=== PATIENT | female | born 1985 | race Two or more races ===

== ENCOUNTER 2024-01-09 16:00 | Emergency (ER) | payer BC, SELFPAY ==
[2024-01-09 16:23] VITALS: BP 135/90; PULSE 76; RESP 18; TEMP 36.9; O2SAT 99; BMI 43.0
--- NOTE | 2024-01-09 16:26 | XR_ITS ---
Examination: Abdomen sonogram, Limited Date and time of exam: January 08, 2024 1729 hrs. Indications: Right upper abdominal pain beginning 2 days ago Technique: Real-time li scale transabdominal sonographic images of the upper abdomen obtained. Findings: Gallbladder is contracted around a large gallstone Gallbladder wall borderline thickened 0.39 cm Common bile duct 0.3 cm Pancreatic head 3.6 cm Liver 13.5 cm fatty infiltration mildly lobular contour Normal hepatopedal portal venous flow Patent IVC Impression: Cholelithiasis Borderline thickening gallbladder wall, clinical correlation advised, consider HIDA scan or MRCP follow-up Mildly prominent pancreatic head, clinical correlation advised Suspect primary hepatocellular disease
--- NOTE | 2024-01-09 16:26 | PD.EDRME ---
Rapid Medical Screening Exam RME Arrival date/time: 01/09/24 16:00 38-year-old female presents the emergency department complaint of abdominal pain Chief Complaint: Abdominal Pain Time Seen by Provider: 01/09/24 16:16 Vital signs: Vital Signs Temperature 98.5 F 01/09/24 16:23 Pulse Rate 76 01/09/24 16:23 Respiratory Rate 18 01/09/24 16:23 Blood Pressure 135/90 H 01/09/24 16:23 Pulse Oximetry (%) 99 01/09/24 16:23 Oxygen Delivery Method Room Air 01/09/24 16:23
[2024-01-09 17:10] LABS: Basophils # (Auto) 0.1 Thou/mm3 (0.0-0.2); Basophils % (Auto) 1 % (0-2.5); Eosinophils # (Auto) 0.2 Thou/mm3 (0.0-0.5); Eosinophils % (Auto) 2 % (0-10); Hematocrit 40.9 % (36.0-46.0); Hemoglobin 13.6 g/dL (12.0-16.0); Immature Granulocytes % (Auto) 0 % (0-0); Immature Granulocytes Auto 0.02 Thou/mm3 (0.00-0.00); Lymphocytes # (Auto) 2.2 Thou/mm3 (1.0-4.8); Lymphocytes % (Auto) 25 % (10-50); Mean Corpuscular HGB Conc 33.3 g/dl (31.0-37.0); Mean Corpuscular Hemoglobin 28.8 pg (25.0-35.0); Mean Corpuscular Volume 87 fL (80-100); Monocytes # (Auto) 0.6 Thou/mm3 (0.0-0.8); Monocytes % (Auto) 7 % (0-12); Neutrophils # (Auto) 5.7 Thou/mm3 (1.8-7.7); Neutrophils % (Auto) 65 % (37-80); Nucleated Red Blood Cell % 0 /100 WBC (0); Platelet Count 290 Thou/mm3 (140-440); RDW Standard Deviation 41.7 fL (36.4-46.3); Red Blood Count 4.73 Miln/mm3 (4.00-5.20); White Blood Count 8.8 Thou/mm3 (3.6-11.0)
[2024-01-09 17:30] LABS: Alanine Aminotransferase 37 U/L (10-49); Albumin, Serum 4.3 gm/dL (3.5-5.0); Albumin/Globulin Ratio 1.4 (1.2-2.2); Alkaline Phosphatase 116 U/L (46-116); Anion Gap 8 (7-16); Aspartate Amino Transferase 31 U/L (0-34); BUN/Creatinine Ratio 10 Ratio (12-20); Bilirubin,Total 0.6 mg/dL (0.3-1.2); Blood Urea Nitrogen 8 mg/dL (9-23); Calcium 9.4 mg/dL (8.3-10.6); Calcium (Corrected) 9.4 mg/dL (8.5-10.1); Chloride 105 mMol/L (98-107); Creatinine (Component) 0.8 mg/dL (0.6-1.3); Estimated Creatinine Clearance 105.4 mL/min (>60); Glucose 81 mg/dL (74-106); Lipase 40 U/L (12-53); Osmolality,Calculated 274 (275-295); Potassium 3.6 mMol/L (3.4-5.1); Sodium 139 mMol/L (136-145); Total Protein 7.3 gm/dL (5.7-8.2); eGFR > 60 See Note
--- NOTE | 2024-01-09 18:17 | EDNOTE_ITS ---
ED Abdominal Pain RME/HPI General Chief Complaint: Abdominal Pain Stated complaint: POSSIBLE GALLSONES Time seen by provider: 01/09/24 16:16 Arrival date/time: 01/09/24 16:00 RME / HPI RME / HPI narrative: 38-year-old female patient with significant history of obesity, came in for evaluation regarding epigastric pain. Onset of symptoms since last night as worsening epigastric pain radiating to the back. Described as crampy, severity moderate. Denies any vomiting denies any fever denies any diarrhea or constipation denies any other complaints no medication was taken prior to arrival. Related Data Home Medications ?Medication ?Instructions ?Recorded ?Confirmed acetaminophen 325 mg capsule 325 mg PO QID PRN 04/08/23 05/22/23 (Tylenol) Previous Rx's ?Medication ?Instructions ?Recorded albuterol sulfate 90 mcg/actuation 2 inh inhalation Q6H PRN shortness 05/22/23 aerosol inhaler of breath or wheezing #6.7 grams ibuprofen 600 mg tablet 600 mg PO Q8H PRN fever or pain 05/22/23 #30 tabs nirmatrelvir 300 mg (150 mg See Rx Instructions PO .COMPLEX 05/22/23 x2)-ritonavir 100 mg tablet,dose #30 tabs pack (Paxlovid) dicyclomine 20 mg tablet 20 mg PO TID PRN abdominal pain 01/09/24 #30 tabs Allergies Allergy/AdvReac Type Severity Reaction Status Date / Time No Known Allergies Allergy Verified 01/09/24 16:02 Review of Systems Review of Systems Narrative Review of Systems: Review of system reviewed and within normal limits except mentioned in HPI ED Exam Narrative Physical exam: VITAL SIGNS: Reviewed. GENERAL APPEARANCE: Alert and interactive, follows commands, no acute distress, HEAD AND FACE: Non-traumatic. ENT: PERRL, pink conjunctivitis, eyelid no trauma, Mucous membrane moist. NECK: Supple, nontender, no nuchal rigidity. CHEST: No tenderness, no crepitus, no paradoxical movement, no retractions. LUNGS: Clear, well ventilated, symmetric, no rales, no wheezing, no ronchi, no stridor, good breath sounds bilaterally. HEART: Regular rate, regular rhythm, no murmur, no gallops. ABDOMEN: Soft, positive bowel sounds, nondistended, no guarding, epigastric tenderness, no rebound, no masses, RECTAL: Deferred. GENITAL: Deferred. NEUROLOGICAL: Gross motor function intact sensory function intact, Appropriate for age. MUSCULOSKELETAL: low back nontender, full range of motion. EXTREMITIES: Nontender, full range of motion. SKIN: Color pink, dry, no rash, no lacerations, no abrasions, no contusions. LYMPHATICS: Deferred. Course Quality Measures none Orders Category Date Time Status US gall bladder Stat Exams 01/09/24 16:26 Taken CBC Stat Lab 01/09/24 16:53 Completed Comprehensive Metabolic Panel Stat Lab 01/09/24 16:53 Completed Lipase Stat Lab 01/09/24 16:53 Completed Metoclopramide [Reglan] Med 01/09/24 18:13 Discontinued 10 mg PO X1 ONE Morphine Inj [Morphine Sulf Inj] Med 01/09/24 18:13 Discontinued 4 mg IM X1 ONE Vital Signs Vital signs: Vital Signs Temperature 98.5 F 01/09/24 16:23 Pulse Rate 76 01/09/24 16:23 Respiratory Rate 18 01/09/24 16:23 Blood Pressure 135/90 H 01/09/24 16:23 Pulse Oximetry (%) 99 01/09/24 16:23 Oxygen Delivery Method Room Air 01/09/24 16:23 Abdominal Pain MDM MDM Narrative MDM Narrative:: 38-year-old female patient with significant history of obesity, came in for evaluation regarding epigastric pain. Onset of symptoms since last night as worsening epigastric pain radiating to the back. Described as crampy, severity moderate. Denies any vomiting denies any fever denies any diarrhea or constipation denies any other complaints no medication was taken prior to arrival. Patient's workup today all came back unremarkable no leukocytosis LFTs are normal total bili is normal, ultrasound regular showed cholelithiasis with no sign of acute cholecystitis. Hpatient appears nontoxic and hemodynamically stable. Patient discharged home and instructed to follow-up with primary care provider in 24 to 48 hours. Instructed to return to the emergency department immediately if worsening of symptoms Patient data External records reviewed:: None Clinical information provided by:: patient Social determinants that could affect healthcare access:: none Patient has the following chronic illnesses:: Obesity How is presenting disease/condition affected by chronic disease/condition?: exacerbated by Evaluation data The following diagnostics were reviewed and interpreted by me:: lab results and radiology exam(s) Lab and/or radiology exams considered but not ordered:: None Interpretation Summary: Laboratory work came back unremarkable. CMP came back unremarkable CMP normal LFTs normal total bili normal. Ultrasound gallbladder showed cholelithiasis with no sign of acute cholecystitis. Medications / Prescriptions Medications or Prescriptions considered but not ordered:: None Medication administrations:: Medication Administration History Discontinued Medications Metoclopramide HCl (Metoclopramide 5 Mg Tablet) 10 mg PO X1 ONE Stop: 01/09/24 18:14 Morphine Sulfate (Morphine Sulf Inj 4 Mg/Ml Vial) 4 mg IM X1 ONE Stop: 01/09/24 18:14 Reglan morphine Consultations Consultation(s) initiated? (list below): No Diagnosis Differential diagnosis abdominal pain: abdominal pain, constipation and pancreatitis Most likely diagnosis given after review of the tests above:: Biliary colic, cholelithiasis Admission Indicated Admission indicated?: not indicated Admission Request Was there a request for admission?: No Disposition Plan Disposition Plan: Discharge Discharge Attestation Discharge Attestation: The patient was given an opportunity to ask questions and understood the discharge instructions. Discharge instructions specifically effects, indications for sooner follow up or return to the emergency department, and the expected course of current diagnosis. Patient condition: Stable Discharge Plan Plan Patient Disposition: HOME (Self Care) Disposition Comment: stable Prescriptions/Referrals Prescriptions/Med Rec: New dicyclomine 20 mg tablet 20 mg PO TID PRN (Reason: abdominal pain) Qty: 30 0RF No Action acetaminophen [Tylenol] 325 mg capsule 325 mg PO QID PRN ibuprofen 600 mg tablet 600 mg PO Q8H PRN (Reason: fever or pain) Qty: 30 0RF albuterol sulfate 90 mcg/actuation HFA aerosol inhaler 2 inh inhalation Q6H PRN (Reason: shortness of breath or wheezing) Qty: 6.7 0RF Paxlovid 300 mg (150 mg x 2)-100 mg tablets,dose pack See Rx Instructions PO .COMPLEX Qty: 30 0RF Rx Instructions: take TWO 150 mg tablets of nirmatrelvir with ONE 100 mg tablet of ritonavir twice daily for 5 days PO Referrals: Linwood Gee PA-C [Primary Care Provider] - In 1 week Problem List Clinical Impression: Cholelithiasis Patient/Caregiver Discharge Instructions Discharge Activity: activity as tolerated Education Materials: ED Gallstones with Biliary Colic Additional Instructions: Thank you for the opportunity for serving you today. You are stable for discharged . You are advised to: Follow-up with your PCP in 1 to 2 days and follow-up with your referral to general surgeon Return to ED for worsening of symptoms Increase oral fluids Take medication as prescribed Avoid eating fatty, greasy, fried foods Print Language: Romansh Stand Alone Forms: Laureen Award Info., Patient Portal Info Letter PA/THERESA Supervising Physician PA/THERESA Supervising Physician: MD Estela
[2024-01-09] MEDS: METOCLOPRAMIDE 5 MG TABLET 10 MG PO (18:34)
== END 2024-01-09 18:55 | disposition home or self-care (01) ==
PROVIDERS: Nurse Practitioner Primary Care; Emergency Provider Emergency Medicine; PCP Physician Assistant
DX: K80.20 Calculus of gallbladder without cholecystitis without obstruction (principal)
CPT/HCPCS: 36415; 76705; 80053; 81001; 81025; 83690; 85025; 99284; A9270

== ENCOUNTER 2024-01-25 09:05 | Day surgery (SDC) | payer BC, SELFPAY ==
[2024-01-22 07:32] VITALS: BMI 43.4
[2024-01-22 08:19] LABS: Basophils # (Auto) 0.1 Thou/mm3 (0.0-0.2); Basophils % (Auto) 1 % (0-2.5); Eosinophils # (Auto) 0.2 Thou/mm3 (0.0-0.5); Eosinophils % (Auto) 2 % (0-10); Hematocrit 42.6 % (36.0-46.0); Hemoglobin 13.8 g/dL (12.0-16.0); Immature Granulocytes % (Auto) 0 % (0-0); Immature Granulocytes Auto 0.02 Thou/mm3 (0.00-0.00); Lymphocytes # (Auto) 2.2 Thou/mm3 (1.0-4.8); Lymphocytes % (Auto) 29 % (10-50); Mean Corpuscular HGB Conc 32.4 g/dl (31.0-37.0); Mean Corpuscular Hemoglobin 28.4 pg (25.0-35.0); Mean Corpuscular Volume 88 fL (80-100); Monocytes # (Auto) 0.3 Thou/mm3 (0.0-0.8); Monocytes % (Auto) 4 % (0-12); Neutrophils # (Auto) 4.7 Thou/mm3 (1.8-7.7); Neutrophils % (Auto) 63 % (37-80); Nucleated Red Blood Cell % 0 /100 WBC (0); Platelet Count 364 Thou/mm3 (140-440); RDW Standard Deviation 41.9 fL (36.4-46.3); Red Blood Count 4.86 Miln/mm3 (4.00-5.20); White Blood Count 7.5 Thou/mm3 (3.6-11.0)
[2024-01-22 08:33] LABS: Alanine Aminotransferase 29 U/L (10-49); Albumin, Serum 4.6 gm/dL (3.5-5.0); Albumin/Globulin Ratio 1.5 (1.2-2.2); Alkaline Phosphatase 119 U/L (46-116); Anion Gap 7 (7-16); Aspartate Amino Transferase 23 U/L (0-34); BUN/Creatinine Ratio 10 Ratio (12-20); Bilirubin,Total 0.8 mg/dL (0.3-1.2); Blood Urea Nitrogen 7 mg/dL (9-23); Calcium 9.4 mg/dL (8.3-10.6); Calcium (Corrected) 9.4 mg/dL (8.5-10.1); Carbon Dioxide 29.1 mMol/L (20.0-31.0); Chloride 104 mMol/L (98-107); Creatinine (Component) 0.7 mg/dL (0.6-1.3); Estimated Creatinine Clearance 121.1 mL/min (>60); Globulin 3.1 gm/dL (2.3-3.5); Glucose 88 mg/dL (74-106); Osmolality,Calculated 276 (275-295); Potassium 3.8 mMol/L (3.4-5.1); Sodium 140 mMol/L (136-145); Total Protein 7.7 gm/dL (5.7-8.2); eGFR > 60 See Note
[2024-01-22 09:26] LABS: Partial Thromboplastin Time 29.6 Seconds (22.0-36.0); Prothrombin Time 10.8 Seconds (9.0-12.2)
[2024-01-25] VITALS (11 sets, daily range): BP systolic 97–125; BP diastolic 64–83; PULSE 55–65; RESP 14–20; TEMP 36.4–36.7; O2SAT 96–100; BMI 43.2
--- NOTE | 2024-01-25 09:30 | CHAP ---
Patient expressed gratitude for prayer before their procedure.
--- NOTE | 2024-01-25 14:59 | SUR.PHASEI ---
1459 Patient arrived to recovery resting comfortably in [facility], on oxygen 10L via oxy mask with an oral airway in place, breathing unlabored, vital signs stable, dressing intact to abdomen; dissolvable sutures, gauze, tegaderm, no bleeding noted, lung sounds clear upon auscultation, bilateral radial pulses present when palpated, report received from Natanael BAUTISTA and Mike COLON
--- NOTE | 2024-01-25 15:07 | ESOP_ITS ---
Date of Procedure 01/25/24 Pre Op Diagnosis Symptomatic cholelithiasis Post Op Diagnosis Same Procedure Laparoscopic cholecystectomy Findings Patient was found to have a noninflamed gallbladder with a large stone Procedure Description After endotracheal anesthesia was given the patient was placed in supine position and the abdomen was prepped with chloroprep solution and draped in a sterile manner. After time out was performed I injected a few cc of of half percent Marcaine with epinephrine below the umbilicus and I made an incision for about 3 cm in length. The fascia was cleaned and Veress needle was inserted to create a pneumoperitoneum up to 15 mmHg. Then introduced a 12 mm trocar which was along and a 10 mm camera through the fascia and I inspected the intra- abdominal organs as well as the gallbladder and the liver. Another 5 mm trocar was inserted in the epigastric region under direct vision after injecting some local anesthesia. At this time the patient was kept in reverse Trendelenburg position with the left lateral tilt. The third 5 mm trocar was inserted over the mid axillary line under direct vision and a Dereck and Munira grasper was used to hold the fundus of the gallbladder. The retraction was carried out by the certified physician's assistant moving the fundus of the gallbladder towards the right shoulder of the patient to create enough traction. I placed a another 5 mm trocar in the midaxillary line just lateral to the rectus muscle under direct vision. I used a fenestrated grasper to retract the neck of the gallbladder laterally towards the patient's right hip. The Calot's triangle was exposed and I achieved the critical view of safety as follows: I dissected out the fatty tissue from the hepatocystic triangle and cleared this area. I also dissected inferior and posterior to the gallbladder to identify the cystic duct and the gallbladder wall. Then superiorly I dissected along the cystic plate up to lower one third third of the gallbladder to lift the gallbladder from the liver. At this time I confirmed that only 2 structures entering the gallbladder were cystic artery and the cystic duct. The common duct was not seen distally but no dissection was carried out around the duct. Because of the patient's obesity it was very difficult to dissect out the gallbladder which was still wedged in the liver. I did not see any need for operative cholangiogram in this patient. The cystic duct was clipped doubly and then divided and cystic artery was similarly dealt with. Then the gallbladder was removed from the liver bed using Harmonic diandra to control the small blood vessels as the dissection proceeded. Then the gallbladder was from the liver bed completely and delivered through t he umbilical port using an Endopouch. The liver bed was coagulated with cautery to obtain satisfactory hemostasis. I applied Surgicel at the liver bed for hemostasis the trocars were pulled out from the abdominal cavity and the fascia at the umbilical incision was closed with interrupted 0 Ethibond. Subcutaneous tissues was closed with 3-0 chromic and injected a few cc of half percent Marcaine with epinephrine and the skin was closed with interrupted 4-0 nylon stitches at all the trocar sites. Dressing was applied with 2 x 2 and Tegaderm. Patient tolerated the procedure well and returned to recovery room in stable condition. Anesthesia GETA Pathology / specimen Other (Gallbladder and the stone) IVF Infused 600 Estimated Blood Loss 100 Surgeon Rema España MD Surgical Staff Operation Date: 01/25/24 11:15 Case Staff CAR WHACKER: Wisam Kidd RNinstrument and control service person: Latasha Boyce
[2024-01-25] MEDS: fentaNYL CIT INJ 50 mCg/ML AMP 2ML IV (15:50)
[2024-01-25] MEDS: ACETAMINOPHEN IVPB 1,000 MG/100 ML VIAL 250 MG IV (15:51)
--- NOTE | 2024-01-25 16:25 | SUR.PHASEII ---
1625 Patient meets discharge criteria from recovery, awake and alert, breathing unlabored, vital signs stable, denies pain, dressing intact; no bleeding noted, patient ate a jello and drinking 7up; denies nausea, patient assisted with dressing into to her clothing by her , discharge instructions given with the assistance of the telephone velvet steamer Shannon ID# [id number] to patient and patients , signed discharge instructions. Patient given all her belongings prior to discharge, transported via wheelchair and left in a private vehicle.
== END 2024-01-25 16:25 | disposition home or self-care (01) ==
PROVIDERS: PCP Family Medicine; Referring Provider Surgery; Visit Provider Surgery
PROC: 0FT44ZZ Resection of Gallbladder, Percutaneous Endoscopic Approach (ICD-10-PCS; CPT 47562; principal; 2024-01-25 11:00)
DX: K80.20 Calculus of gallbladder without cholecystitis without obstruction (principal)
CPT/HCPCS: 47562; 36415; 80053; 81025; 85025; 85610; 85730; A4217; A4649; J0131; J0690; J1100; J1885; J2250; J2405; J2704; J3010; J3490

== ENCOUNTER → 2025-01-02 | Outpatient (CLI) | payer BC, SELFPAY ==
--- NOTE | 2025-01-02 10:00 | XR_ITS ---
EXAMINATION: Upper GI series Esophagram standard 12 spot fluoroscopic films of the esophagus and stomach Date and time: January 02, 2025, 1058 hours INDICATIONS: Gastroesophageal reflux disease heartburn months TECHNIQUE AND FINDINGS: 12. Spot fluoroscopic films were obtained of the esophagus and stomach with the patient swallowing thin barium Primary. Peristaltic esophageal waves noted There is moderate intermittent gastroesophageal reflux No stricture of the gastroesophageal junction Small sliding esophageal hernia Peristalsis distal versus the stomach normally No gastric mass or ulceration No duodenal ulceration IMPRESSION: Moderate intermittent gastroesophageal reflux No stricture at the gastroesophageal junction No gastric mass or deformity Fluoroscopy 0.1-minute radiation dose 25.12 mGy, 12 spot fluoroscopic films of the esophagus and stomach
== END | disposition home or self-care (01) ==
LOC: SDIM 10:03
DX: K21.9 Gastro-esophageal reflux disease without esophagitis (principal)
CPT/HCPCS: 74240; A4649